=== PATIENT | female | born 2000 | race Caucasian/White ===

== ENCOUNTER 2021-09-15 11:42 | Emergency (ER) | payer SELFPAY ==
[~2021-09-15] VITALS: Ht 162.6 cm; Wt 81.6 kg
[2021-09-15] MEDS ORDERED: DICYCLOMINE HCL20 MG PO (12:35)
[2021-09-15] MEDS ORDERED: PHENERGAN SUPP25 MG PR (12:35)
[2021-09-15] MEDS ORDERED: PROMETHAZINE HCL (IM) 25 MG/ML VIAL IM ONE (12:45)
[2021-09-15] MEDS ORDERED: DICYCLOMINE HCL 20 MG/2 ML VIAL IM ONE ×2 (12:55→13:30)
== END 2021-09-15 12:50 | disposition home or self-care (01) ==
LOC: ER 12:15
DX: R10.13 Epigastric pain (principal); K29.70 Gastritis, unspecified, without bleeding; R11.2 Nausea with vomiting, unspecified
CPT/HCPCS: 99282; J0500; J2550